=== PATIENT | female | born 1970 | race Asian ===

== ENCOUNTER 2018-08-16 13:44 | Inpatient (IN) | payer BC ==
[2018-08-16] VITALS (12 sets, daily range): BP systolic 113–172; BP diastolic 65–94; TEMP 98–98.3; Ht 170.2 cm; Wt 98.1 kg
[~2018-08-16] VITALS: Ht 170.2 cm; Wt 98.1 kg
[2018-08-16 14:53] LABS: PLATELET COUNT 276 K/uL (152-353)
[2018-08-16 15:34] LABS: POTASSIUM 4.5 mmol/L (3.6-5.2)
[2018-08-16] MEDS ORDERED: AMLODIPINE BESYLATE PO (18:09)
[2018-08-16] MEDS ORDERED: METFTAB PO (18:10)
[2018-08-16] MEDS ORDERED: ATEN50TA36 PO (18:11)
[2018-08-16 22:06] LABS: POTASSIUM 3.1 mmol/L (3.6-5.2)
[2018-08-17] VITALS (19 sets, daily range): BP systolic 115–148; BP diastolic 69–93; TEMP 97.9–98.6
[2018-08-17 02:53] LABS: POTASSIUM 3.5 mmol/L (3.6-5.2)
[2018-08-17 06:01] LABS: PLATELET COUNT 252 K/uL (152-353)
[2018-08-17 06:22] LABS: POTASSIUM 3.9 mmol/L (3.6-5.2)
[2018-08-17 11:19] LABS: POTASSIUM 3.6 mmol/L (3.6-5.2)
[2018-08-17 16:25] LABS: POTASSIUM 4.2 mmol/L (3.6-5.2)
[2018-08-18 03:59] VITALS: BP 136/77; TEMP 98
[2018-08-18 05:40] LABS: PLATELET COUNT 205 K/uL (152-353)
[2018-08-18 05:55] LABS: POTASSIUM 3.7 mmol/L (3.6-5.2)
[2018-08-18 08:07] VITALS: BP 131/75; TEMP 98
[2018-08-18] MEDS ORDERED: METFORMIN HYDR500 M2 PO (10:37)
[2018-08-18 12:09] VITALS: BP 157/89; TEMP 98.4
[2018-08-18 16:03] VITALS: BP 140/78; TEMP 98.7
== END 2018-08-18 16:50 | disposition home or self-care (01) | DRG 639 ==
LOC: INF 13:44 → ICU 16:50 → MED/SURG 08-17 17:30
PROVIDERS: ADMIT Family Medicine
DX: E13.10 Other specified diabetes mellitus with ketoacidosis without coma (principal); Z79.4 Long term (current) use of insulin; R11.2 Nausea with vomiting, unspecified; R73.9 Hyperglycemia, unspecified; E86.0 Dehydration; E66.9 Obesity, unspecified; E83.41 Hypermagnesemia
CPT/HCPCS: 36600; 80048; 80053; 81000; 81002; 82805; 83036; 83735; 84100; 84132; 84443; 85027; 96360; 96361; J1650; J1815; J3475; J3480; J3490; J7060